=== PATIENT | male | born 1955 | race Caucasian/White ===

== ENCOUNTER → 2016-07-12 | Outpatient (CLI) | payer OTHER ==
--- NOTE | 2016-07-12 10:29 | DX ---
PA and Lateral Chest July 12, 2016 History: Concern for aspiration during sleep, sensation of something in chest. Comparison: None available. Findings: Mild peribronchial thickening is present with a linear right upper lobe opacity. No radiopa que foreign object is identified. Heart size is normal. Mild degenerative change is present in the sp ine. Impression: Bronchitis/airways disease with a linear patchy right upper lobe opacity, possibly relate d to atelectasis or less likely pneumonia.
== END ==
LOC: BMCIMAGING 09:44
PROVIDERS: ATTEND Internal Medicine
DX: J98.4 Other disorders of lung (principal)